=== PATIENT | male | born 1940 | race African-American/Black ===

== ENCOUNTER 2020-09-18 14:58 | Outpatient (CLI) | payer OTHER, SELFPAY | END 2020-09-18 14:59 | disposition home or self-care (01) | LOC: ANHCOVIDVC 14:58 | PROVIDERS: PCP Family Medicine | DX: Z23 Encounter for immunization (principal) | CPT/HCPCS: 0001A; 91300 ==

== ENCOUNTER 2020-10-09 14:59 | Outpatient (CLI) | payer OTHER, SELFPAY | END 2020-10-09 15:00 | disposition home or self-care (01) | LOC: ANHCOVIDVC 14:59 | PROVIDERS: PCP Family Medicine | DX: Z23 Encounter for immunization (principal) | CPT/HCPCS: 0002A; 91300 ==